=== PATIENT | female | born 2000 | race Caucasian/White ===

== ENCOUNTER 2019-10-30 17:57 | Emergency (ER) | payer BC ==
[~2019-10-30] VITALS: Ht 188 cm; Wt 102.4 kg
--- NOTE | 2019-10-30 17:59 | PHYS DOC ---
Adult General Chief Complaint Chief Complaint: ".. I just moved up here from [place].. but I ve been sick for about two weeks.. I was vomiting last week.. fever, chills.... missed work,,, went back to work... but now I got a really sore throat and hoarse... coughing.. congeston.. " HPI HPI Patient is a 18 year old female who presents with above hx and complaints of congestion and sore throat. Patient has been ill approximately 2 weeks. Last week missed work because of vomiting, malaise, arthralgia and fevers. Patient denies any history immunosuppression. Recent travel from [place] to live here in [place]. 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 Patient does smoke. Cough has been nonproductive. Patient states she is only sexually active as a lesbian, denies . Patient did not get a flu vaccination this season. Review of Systems Review of Systems Constitutional: History of fever or chills [] Eyes: Denies change in visual acuity, redness, or eye pain [] HENT: History of nasal congestion and sore throat [] Respiratory: History of cough, wheezing Cardiovascular: No additional information not addressed in HPI [] GI: Denies abdominal pain, nausea, vomiting, bloody stools or diarrhea [] : Denies dysuria or hematuria [] Musculoskeletal: Denies back pain or joint pain [] Integument: Denies rash or skin lesions [] Neurologic: Denies headache, focal weakness or sensory changes [] Endocrine: Denies polyuria or polydipsia [] All other systems were reviewed and found to be within normal limits, except as documented in this note. Family History Family History Noncontributory Current Medications Current Medications See nursing for home meds Allergies Allergies No known drug allergies Physical Exam Physical Exam Constitutional: Well developed, well nourished, moderate acute distress, non- toxic appearance. [] HENT: Normocephalic, atraumatic, bilateral external ears normal, oropharynx moist, injected pharynx, no oral exudates, nose swollen turbinates and clear rhinorrhea Eyes: PERRLA, EOMI, conjunctiva normal, no discharge. [] Neck: Normal range of motion, no tenderness, supple, no stridor. [] Cardiovascular:Heart rate regular rhythm, no murmur [] Lungs & Thorax: Bilateral breath sounds at apexes with a few scattered wheezes auscultation [] Abdomen: Bowel sounds normal, soft, no tenderness, no masses, no pulsatile masses. [] Skin: Warm, dry, no erythema, no rash. [] Back: No tenderness, no CVA tenderness. [] Extremities: No tenderness, no cyanosis, no clubbing, ROM intact, no edema. [] Neurologic: Alert and oriented X 3, normal motor function, normal sensory function, no focal deficits noted. [] Psychologic: Affect anxious, judgement normal, mood normal. [] EKG EKG [] Radiology/Procedures Radiology/Procedures [] Course & Med Decision Making Course & Med Decision Making Pertinent Labs and Imaging studies reviewed. (See chart for details) Patient gargle with Listerine 4 times a day. Take Tylenol and ibuprofen for discomfort. Use MDI 2 puffs 4 times a day. Trial of Benadryl 50 mg at night and 25 mg 4 times a day for congestion and drainage. Liquid Benadryl and Liquid Ibuprofen may give topical relief to sore throat. Follow-up primary care. Return if any concerns. Trace Leukocytes urine- recheck on follow up with primary. Impression- 1. Pharyngitis- viral 2. Viral Syndrome [] Dragon Disclaimer Dragon Disclaimer This electronic medical record was generated, in whole or in part, using a voice recognition dictation system. Departure Departure: Disposition: 01 HOME/RESIDENCE PRIOR TO ADM Condition: STABLE Dragon Disclaimer This chart was dictated in whole or in part using Voice Recognition software in a busy, high-work load, and often noisy Emergency Department environment. It may contain unintended and wholly unrecognized errors or omissions. HENRIK VITAL MD Oct 30, 2019 17:59
[2019-10-30 18:00] VITALS: BP 128/86
[2019-10-30] MEDS ORDERED: predniSONE 10 MG TABLET PO ONE (18:00)
[2019-10-30] MEDS ORDERED: ALBUTEROL SULFATE 8GM INHALER. INH ONE (18:15)
[2019-10-30 18:52] LABS: BARBITURATES NEG (NEG); BENZODIAZEPINES NEG (NEG); CANNABINOIDS NEG (NEG); COCAINE NEG (NEG); METHADONE NEG (NEG); OPIATES NEG (NEG); PHENCYCLIDINE NEG (NEG)
[2019-10-30 18:53] LABS: AMPHETAMINE/METHAMPHETAMINE NEG (NEG)
[2019-10-30 19:07] LABS: INFLUENZA A PATIENT NEGATIVE (NEGATIVE); INFLUENZA B PATIENT NEGATIVE (NEGATIVE)
[2019-10-30] MEDS ORDERED: HYDROcodon/IBUPROFEN 7.5/200MG 1 TAB TABLET PO ONE (19:15)
[2019-10-30] MEDS ORDERED: diphenhydrAMINE ORAL ELIXIR 12.5 MG/5 ML ML PO ONE (19:15)
[2019-10-30 19:20] LABS: BACTERIA,URINE MOD /HPF (0-FEW); BILIRUBIN,URINE NEG (NEG); CLARITY,URINE HAZY; COLOR,URINE YELLOW; GLUCOSE,URINE NEG (NEG); NITRITE,URINE NEG (NEG); RBC,URINE 0 /HPF (0-2); SQUAMOUS EPITHELIAL CELL,UR OCC /LPF; UROBILINOGEN,URINE 0.2 mg/dL (0.2 mg/dL)
[2019-10-30] MEDS ORDERED: diphenhydrAMINE HCL 25 MG CAPSULE PO ONE (19:45)
== END 2019-10-30 19:55 | disposition home or self-care (01) ==
LOC: ER 17:57
DX: B34.9 Viral infection, unspecified (principal); J02.9 Acute pharyngitis, unspecified
CPT/HCPCS: 36415; 80307; 81001; 81025; 87070; 87086; 87804; 87880; 94640; 99284; J7512; J7613; Q0163; 94664